=== PATIENT | male | born 1940 | race Caucasian/White ===

== ENCOUNTER → 2021-03-20 | Outpatient (CLI) | payer MEDICARE, OTHER ==
--- NOTE | 2021-03-20 14:32 | XR ---
EXAMINATION TYPE: XR abdomen 2V DATE OF EXAM: 03/20/2021 COMPARISON: 05/26/2010 INDICATION: Pain and diarrhea TECHNIQUE: Abdomen is examined in supine and upright views. FINDINGS: Air-fluid levels are within the colon. Couple differential air-fluid levels are evident. No dilated l oops of bowel are evident. No free air is present. No mass effect is evident. Psoas margins are normal. No organomegaly is present. IMPRESSION: 1. Clinical consideration for gastroenteritis is recommended.
== END | disposition home or self-care (01) ==
LOC: RADXRYALE 11:55
PROVIDERS: ATTEND Family Medicine
DX: R19.7 Diarrhea, unspecified (principal)
CPT/HCPCS: 74019

== ENCOUNTER → 2024-01-06 | Outpatient (CLI) | payer MEDICARE, OTHER ==
[2024-01-06 13:59] LABS: African American GFR (CKD) 71 (>60 ml/min/1.73 sqM); Blood Urea Nitrogen 24 mg/dL (9-20); Non-African American GFR(CKD) 61 (>60 ml/min/1.73 sqM)
--- NOTE | 2024-01-22 14:23 | CT ---
EXAMINATION TYPE: CT abdomen pelvis w con CT DLP: 1604 mGycm, Automated exposure control for dose reduction was used. DATE OF EXAM: 01/06/2024 3:11 PM COMPARISON: None. CLINICAL INDICATION:Male, 83 years old with history of R10.816 EPIGASTRIC ABDOMINAL TENDERNESS; ABD T ENDERNESS TECHNIQUE: Axial CT of the abdomen and pelvis. Sagittal and coronal reformats were created on a [employer] workstation. Contrast used:100 mL of Isovue 300 with IV Contrast, Oral contrast used: with Oral Contrast FINDINGS: LOWER CHEST: Mild bibasilar scarring and/or subsegmental atelectasis. Juxtapleural micronodule and sm all bulla in the lingula. Heart size upper normal. No pericardial effusion. ABDOMEN LIVER: Small cysts in the left lobe and near the tip of the right lobe. There may be mild steatosis. GALLBLADDER AND BILE DUCTS: Gallbladder is absent or contracted. Biliary tree is mildly prominent but not overtly dilated. PANCREAS: Unremarkable. SPLEEN: Unremarkable. ADRENAL GLANDS: Unremarkable. KIDNEYS AND URETERS: Kidneys enhance symmetrically. Mildly prominent bilateral extrarenal pelves. No evidence of hydronephrosis or visible renal calculus. The ureters are unremarkable. PELVIS The prostate appears markedly enlarged and heterogeneous, measuring 71 x 61 mm. This significantly in dents the base of the adjacent bladder. Bladder is mildly to moderately distended. The wall appears g enerally mildly thickened, and considered excessive for the degree of distention; this could be hyper trophic related to chronic bladder outlet obstruction. No inflammatory changes or fluid seen in the p aron. ABDOMEN & PELVIS STOMACH AND BOWEL: Contrast traverses the stomach and small bowel loops without evidence of obstructi on. No evidence of appendicitis. There is contrast seen throughout the colon to the level of the prox imal transverse segment. No colonic abnormality is shown. PERITONEUM/RETROPERITONEUM: No evidence of pneumoperitoneum or free fluid. VASCULATURE: Mild atherosclerotic calcifications are present throughout the abdominal aorta and its b ranches. No evidence of aortic aneurysm. Aorta is tortuous. Portal vein, SMV, splenic vein appear p atent. IVC is patent. LYMPH NODES: No enlarged nodes by CT size criteria. SOFT TISSUE/ABDOMINAL WALL: Small fat-containing umbilical and bilateral inguinal hernias. MUSCULOSKELETAL: No acute osseous abnormalities. Moderate degenerative changes of the spine. Trace r etrolisthesis L2 on L3 and L3 on L4. IMPRESSION: 1. No acute abnormality demonstrated to explain the patient's symptoms. 2. Massive prostatomegaly. Recommend urology consult. 3. Other chronic and likely incidental findings, as described above.
== END | disposition home or self-care (01) ==
LOC: RADCTMAIN 12:59
PROVIDERS: ATTEND Family Medicine
DX: N40.0 Benign prostatic hyperplasia without lower urinary tract symptoms (principal); K42.9 Umbilical hernia without obstruction or gangrene; R10.816 Epigastric abdominal tenderness; R10.814 Left lower quadrant abdominal tenderness
CPT/HCPCS: 82565; 84520; 74177; 36415; Q9967